=== PATIENT | male | born 1945 | race Caucasian/White ===

== ENCOUNTER → 2019-06-20 15:06 | Outpatient (CLI) | payer MEDICARE, SELFPAY ==
--- NOTE | 2019-06-20 | DI.RAD.S_ITS ---
PROCEDURE: XR CHEST 2V INDICATIONS: Coccidioldomycosis TECHNIQUE: 2 views of the chest were acquired. COMPARISON: None. FINDINGS: Surgical changes and devices: None. Lungs and pleura: Ill-defined subtle opacity in the left upper lung field is seen concerning for a small left upper lobe infiltrate. No pleural effusions or pneumothorax. Mediastinum: Mediastinal contours are normal. Heart size is normal. Bones and chest wall: No suspicious bony abnormalities. Soft tissues appear unremarkable. IMPRESSION: Finding a represent a small left upper lobe infiltrate. CT of chest can be done for further evaluation of this region. Dictated by: Edmundo Badillo M.D. on 06/20/2019 at 16:22 Approved by: Edmundo Badillo M.D. on 06/20/2019 at 16:22
== END ==
PROVIDERS: PCP Student in an Organized Health Care Education/Training Program; Visit Provider Student in an Organized Health Care Education/Training Program
DX: B38.9 Coccidioidomycosis, unspecified (principal)
CPT/HCPCS: 71046